=== PATIENT | female | born 1970 | race Caucasian/White ===

== ENCOUNTER 2020-05-14 13:05 | Inpatient (IN) | payer BC ==
[~2020-05-14] VITALS: Ht 167.6 cm; Wt 125.6 kg
[~2020-05-14 13:05] MED LIST: ASPIRIN CHEWABL81 MG PO; ZITHROMAX250 MG PO
[2020-05-14 14:22] LABS: HEMOGLOBIN 14.9 gm/dl (12.3-15.3); RED BLOOD COUNT 5.2 M/UL (4.00-5.10); WHITE BLOOD COUNT 6.2 K/UL (4.5-11.0)
[2020-05-14] MEDS ORDERED: LINZESS72 MCG PO (14:32)
[2020-05-14] MEDS ORDERED: SINGULAIR10 MG PO (14:32)
[2020-05-14] MEDS ORDERED: CLARITIN10 MG PO (14:33)
[2020-05-14] MEDS ORDERED: LOPRESSOR50 MG PO (14:47)
[2020-05-14] MEDS ORDERED: CYCLOBENZAPRINE10 MG PO (14:47)
[2020-05-14] MEDS ORDERED: PROTONIX40 MG PO (14:48)
[2020-05-14] MEDS ORDERED: MULTIVITAMIN1 EACH PO (14:48)
[2020-05-14] MEDS ORDERED: MEDROL DOSEPAK 24 MG PO (14:51)
[2020-05-14 17:35] LABS: BUN/CREATININE RATIO 18 (0-10)
[2020-05-16 00:46] LABS: ACINETOBACTER BAUMANNII Not Detected (Negative); CANDIDA ALBICANS Not Detected (Negative); CANDIDA KRUSEI Not Detected (Negative); CANDIDA TROPICALIS Not Detected (Negative); ENTEROCOCCUS Not Detected (Negative); ESCHERICHIA COLI Not Detected (Negative); HAEMOPHILUS INFLUENZAE Not Detected (Negative); KLEBSIELLA OXYTOCA Not Detected (Negative); KLEBSIELLA PNEUMONIAE Not Detected (Negative); KPC-CARBAPENEM-RESISTANCE GENE Not Detected (Negative); PROTEUS Not Detected (Negative); PSEUDOMONAS AERUGINOSA Not Detected (Negative); SERRATIA MARCESANS Not Detected (Negative); STAPHYLOCOCCUS AUREUS Not Detected (Negative); STREP AGALACTIAE (GROUP B) Not Detected (Negative); STREP PYOGENES (GROUP A) Not Detected (Negative); STREPTOCOCCUS Not Detected (Negative); mecA (METHICILLIN RESIST GENE Not Detected (Negative); vanA/B (VANCOMYCIN RESIST GENE Not Detected (Negative)
[2020-05-16 02:08] LABS: STAPHYLOCOCCUS DETECTED (Negative)
[2020-05-16 11:29] LABS: WHITE BLOOD COUNT 5.7 K/UL (4.5-11.0)
[2020-05-16 11:52] LABS: HEMOGLOBIN 12.8 gm/dl (12.3-15.3); RED BLOOD COUNT 4.56 M/UL (4.00-5.10)
[2020-05-16 11:58] LABS: BUN/CREATININE RATIO 17 (0-10)
[2020-05-17 03:18] LABS: HEMOGLOBIN 12.4 gm/dl (12.3-15.3); RED BLOOD COUNT 4.45 M/UL (4.00-5.10); WHITE BLOOD COUNT 4.6 K/UL (4.5-11.0)
[2020-05-17 03:43] LABS: BUN/CREATININE RATIO 21 (0-10)
[2020-05-18 03:01] LABS: HEMOGLOBIN 12.1 gm/dl (12.3-15.3); RED BLOOD COUNT 4.3 M/UL (4.00-5.10); WHITE BLOOD COUNT 5.3 K/UL (4.5-11.0)
[2020-05-18 03:30] LABS: BUN/CREATININE RATIO 22 (0-10)
[2020-05-19 04:02] LABS: HEMOGLOBIN 12.4 gm/dl (12.3-15.3); RED BLOOD COUNT 4.43 M/UL (4.00-5.10); WHITE BLOOD COUNT 6.2 K/UL (4.5-11.0)
[2020-05-19 04:31] LABS: BUN/CREATININE RATIO 20 (0-10)
[2020-05-20 17:06] LABS: HEMOGLOBIN 12.9 gm/dl (12.3-15.3); RED BLOOD COUNT 4.58 M/UL (4.00-5.10)
[2020-05-20 17:08] LABS: WHITE BLOOD COUNT 9.1 K/UL (4.5-11.0)
[2020-05-20 17:29] LABS: BUN/CREATININE RATIO 22 (0-10)
[2020-05-21 04:11] LABS: BUN/CREATININE RATIO 30 (0-10)
[2020-05-21 05:12] LABS: RED BLOOD COUNT 4.73 M/UL (4.00-5.10); WHITE BLOOD COUNT 10.2 K/UL (4.5-11.0)
[2020-05-22 03:27] LABS: HEMOGLOBIN 13.2 gm/dl (12.3-15.3); RED BLOOD COUNT 4.56 M/UL (4.00-5.10); WHITE BLOOD COUNT 12.3 K/UL (4.5-11.0)
[2020-05-22 03:55] LABS: BUN/CREATININE RATIO 24 (0-10)
[2020-05-23 03:48] LABS: HEMOGLOBIN 13.3 gm/dl (12.3-15.3); RED BLOOD COUNT 4.7 M/UL (4.00-5.10); WHITE BLOOD COUNT 10.2 K/UL (4.5-11.0)
[2020-05-23 04:24] LABS: BUN/CREATININE RATIO 26 (0-10)
[2020-05-23] MEDS ORDERED: HUMIBID LA TAB600 MG PO (17:10)
[2020-05-23] MEDS ORDERED: COZAAR 25MG TAB25 MG PO (17:15)
[2020-05-23] MEDS ORDERED: LOPRESSOR 25 MG25 MG PO (17:15)
--- NOTE | 2020-05-24 09:03 | NUR ---
PER NURSING DOCUMENTATION, PATIENT SATS 89% ON ROOM AIR
[2020-05-24] MEDS ORDERED: GLUCOPHAGE500 MG PO (10:46)
[2020-05-24] MEDS ORDERED: MEDROL2 MG PO (11:34)
== END 2020-05-24 13:45 | disposition home or self-care (01) | DRG 177 ==
LOC: ER1 13:05 → CDU 14:24 → PROG CARE 14:24 → CDU 22:26 → PROG CARE 05-15 12:35
PROVIDERS: Emergency Medicine; Internal Medicine; ADMIT Internal Medicine
PROC: 8E0ZXY6 Isolation (ICD-10-PCS; principal; 2020-05-14)
PROC: XW13325 Transfusion of Convalescent Plasma (Nonautologous) into Peripheral Vein, Percutaneous Approach, New Technology Group 5 (ICD-10-PCS; 2020-05-14)
PROC: XW033E5 Introduction of Remdesivir Anti-infective into Peripheral Vein, Percutaneous Approach, New Technology Group 5 (ICD-10-PCS; 2020-05-15)
DX: U07.1 COVID-19 (principal); J12.82 Pneumonia due to coronavirus disease 2019; J96.01 Acute respiratory failure with hypoxia; J15.9 Unspecified bacterial pneumonia; M62.82 Rhabdomyolysis; E66.9 Obesity, unspecified; G47.33 Obstructive sleep apnea (adult) (pediatric); E11.9 Type 2 diabetes mellitus without complications; K21.9 Gastro-esophageal reflux disease without esophagitis; J30.9 Allergic rhinitis, unspecified; M62.838 Other muscle spasm; Z79.899 Other long term (current) drug therapy
CPT/HCPCS: 36415; 36600; 71045; 80053; 80076; 80307; 81001; 82550; 82553; 82728; 82803; 82962; 83036; 83605; 83615; 83735; 83874; 83880; 84439; 84484; 84703; 85025; 85027; 85610; 86140; 86900; 86901; 86927; 87040; 87070; 87150; 87205; 93005; 94640; 94664; 94760; 96372; 96374; 96375; 96376; 97162; 97165; 99285; J0696; J1100; J2405; J2550; J7030

== ENCOUNTER → 2020-08-08 | Outpatient (CLI) | payer BC, OTHER ==
[~2020-08-08] MED LIST changes: +CLARITIN10 MG PO; +COZAAR 25MG TAB25 MG PO; +CYCLOBENZAPRINE10 MG PO; +GLUCOPHAGE500 MG PO; +HUMIBID LA TAB600 MG PO; +LINZESS72 MCG PO; +LOPRESSOR 25 MG25 MG PO; +LOPRESSOR50 MG PO; +MEDROL DOSEPAK 24 MG PO; +MEDROL2 MG PO; +MULTIVITAMIN1 EACH PO; +PROTONIX40 MG PO; +SINGULAIR10 MG PO
== END ==
LOC: EXRD 11:29
DX: R07.89 Other chest pain (principal); I10 Essential (primary) hypertension; R53.83 Other fatigue
CPT/HCPCS: 71046

== ENCOUNTER → 2020-09-13 | Outpatient (CLI) | payer BC, OTHER | LOC: HEART 5 09-11 08:45 | DX: R07.9 Chest pain, unspecified (principal); R06.02 Shortness of breath; Z86.16 Personal history of COVID-19 | CPT/HCPCS: 78452; 93306; A9502; J2785 ==

== ENCOUNTER → 2020-09-20 | Outpatient (CLI) | payer BC, OTHER | LOC: EXRD 09:57 | DX: M25.562 Pain in left knee (principal); M17.12 Unilateral primary osteoarthritis, left knee | CPT/HCPCS: 73564 ==